=== PATIENT | female | born 1965 | race Caucasian/White ===

== ENCOUNTER 2018-06-07 06:09 | Day surgery (SDC) | payer BC, SELFPAY ==
[2018-06-07 06:29] VITALS: BP 99/67; PULSE 74; RESP 18; TEMP 35.9; O2SAT 100
[2018-06-07] MEDS: Lactated Ringers 1,000 ML 80 ML IV (07:14)
[2018-06-07] MEDS: Lidocaine 1% Pres-Free 5 ML VIAL (07:34)
[2018-06-07] MEDS: Bupivacaine 0.5% Pres-Free 30 ML VIAL ×2 (07:34→08:40)
[2018-06-07] MEDS: Lidocaine 2% Jelly 5 ML TUBE 2 ML TP (07:45)
[2018-06-07] MEDS: Dexamethasone 4 MG/ML VIAL (08:39)
--- NOTE | 2018-06-07 08:56 | W.PM.DSUDISC ---
Discharge Plan Discharge Details Attending Provider: Eliecer Davis Primary Care Provider: Baljeet Martinez Home Meds and New Rx's Prescriptions: No Action levothyroxine 125 mcg Capsule 125 mcg PO DAILY RF: 0 DS: Diagnosis Discharge Diagnosis (1) Hallux valgus (acquired), left foot: Start date: 06/07/18 Start time: 09:00 Status: Acute Asessment and Plan: HAV LEFT FOOT Edy type bunionectomy with fibular sesamoidectomy and internal fixation with 2.7 synthes screws x 2.
[2018-06-07 09:20] VITALS: BP 111/76; PULSE 58; RESP 16; TEMP 36; O2SAT 100
--- NOTE | 2018-06-07 10:09 | ROE_ITS ---
REPORT OF OPERATIVE PROCEDURE DATE OF PROCEDURE June 07, 2018 PREOPERATIVE DIAGNOSIS Symptomatic left HAV deformity. POSTOPERATIVE DIAGNOSIS Symptomatic left HAV deformity. PROCEDURE Edy-type bunionectomy with fibular sesamoidectomy, internal refixation, Synthes 2.7 cortical screw s 15 mm x2. SURGEON Eliecer Davis D.P.M. ANESTHESIA General anesthesia. ANESTHESIA PROVIDER Jaguar Contreras C.R.N.A. OPERATIVE INDICATIONS A 53-year-old female with chronic left foot pain centered around her left bunion deformity, pain sub second metatarsal. Weight bearing, shoe gear utilization, daily activities have all been negatively a ffected by the deformity. Conservative treatment has failed to provide significant relief of symptoms . She is opting for surgical intervention. She understands the potential risks and complications of the surgery pertaining to pain, scarring, in fection, and wound dehiscence, malunion, nonunion, delayed union of the osteotomy, over correction, u nder correction of the deformity, dorsal floating of the great toe, shortening of the great toe, fail ure of the great toe to purchase the ground, symptomatic hardware potentially requiring reversional p rocedure. Informed consent has been obtained. No promises made final outcome of surgery. REPORT OF OPERATION Gabriela was brought to the Operative Suite, placed in the supine position where the left foot was preppe d and draped in the usual sterile podiatric fashion. Anesthesia being obtained via 10 cc of 50:50 mi xture of 1% lidocaine plain, 0.5% Marcaine plain. A well-padded ankle tourniquet inflated, once the f oot was exsanguinated 250 mmHg. Attention was directed to the dorsal aspect of first MPJ were a 5-cm incision was made medial to the EHL tendon. The incision was deepened in controlled depth fashion. Hemostasis acquired with electrocautery as needed. Dissection was carried down to the joint capsule . Significant constriction of the lateral portion of the joint capsule was appreciated. As such, a la teral capsulotomy was performed. The fibular sesamoid was noted to be sitting on the lateral side of the first metatarsal head, so we proceeded with a fibular sesamoidectomy. Once this was accomplished, nice relaxation of the great toe joint was appreciated. Attention was now directed medially, where a n inverted L-capsulotomy was performed. The capsule was reflected. The first metatarsal head was deli giana into the wound. Extensive hypertrophy was appreciated over the dorsal and medial aspect of the first metatarsal head. With power instrumentation, the hyperostosis was all resected. The articular c artilage appeared viable. There was some denuding dorsal medially over the joint line, but overall, t he joint did appear viable. An office V-osteotomy was then performed through the first metatarsal hea d so as to translocate the capital fragment laterally. This was accomplished successfully. The head was impacted and fixated with two Synthes 2.7 cortical screws. Good correction of deformity was appre ciated at this time. The medial shelf was resected. Please note the bone was moderately soft overall and will be brought up to the patient postoperatively. Nevertheless, the screws purchased well. Once again, irrigation was performed. All roughened bony edges were smoothed. The joint capsule was repai red performing a medial capsulorraphy, closing the capsule with simple interrupted suture #3-0 Vicryl . The subcutaneous layer was repaired with #3-0 Vicryl. The subcuticular layer was brought together with #4-0 Vicryl and a running Monocryl #4.0 suture was used to coapt the skin, 1/2-inch Steri-Strips were then applied, followed by Xeroform, gauze fluff compression dressings. The Tourniquet was rele ased at approximately 58 minutes with vascularity returning immediately to all toes. Gabriela left the OR with vital signs stable, vascular status intact. She will be followed by myself in the office next week. Sponge and sharp counts were correct. CC: Raj Rehman.
== END 2018-06-07 09:38 | disposition home or self-care (01) ==
PROVIDERS: PCP Specialist/Technologist Athletic Trainer; Visit Provider Podiatrist
PROC: (CPT 28292; principal; 2018-06-07 07:30)
DX: M20.12 Hallux valgus (acquired), left foot (principal); M21.612 Bunion of left foot; M79.675 Pain in left toe(s)
CPT/HCPCS: 28296; J0690; J1100

== ENCOUNTER 2020-07-02 15:12 | Outpatient (REF) | payer BC, SELFPAY ==
[2020-07-02 16:26] LABS: HCT 41.7 % (36.0-46.0); HGB 14.2 g/dL (11.2-15.7); MCH 30.3 pg (27.0-33.0); MCHC 34.1 % (32.0-36.0); MCV 88.9 fL (80-95); MPV 10.3 fL (8.0-11.0); Platelet Count 192 10^3/uL (130-400); RBC 4.69 10^6/uL (3.93-5.22); RDW 12.4 % (11.7-14.6); RDW-SD 40.2 fL; WBC 4.41 10^3/uL (4.4-10.8)
[2020-07-02 16:37] LABS: Anion Gap 5.4 mmol/L (3-11); BUN 20 mg/dL (7-18); CO2 30.6 mmol/L (21.0-32.0); CREATININE 0.8 mg/dL (0.55-1.02); Calcium 8.8 mg/dL (8.5-10.1); Calculated LDL 130 mg/dL (<100); Chloride 107 mmol/L (98-107); Cholesterol 195 mg/dL (<200); Glucose 87 mg/dL (74-106); HDL Cholesterol 57 mg/dL (40-60); Magnesium 2.1 mg/dL (1.8-2.4); Potassium 4.2 mmol/L (3.5-5.1); Sodium 143 mmol/L (136-145); Triglyceride 42 mg/dL (<150)
[2020-07-05 11:23] LABS: Hepatitis C Ab w Rflx HCV PCR Negative (Negative)
== END 2020-07-02 15:13 | disposition home or self-care (01) ==
LOC: NCHCN 15:12
PROVIDERS: PCP Nurse Practitioner Family; Visit Provider Nurse Practitioner Family
DX: Z00.00 Encounter for general adult medical examination without abnormal findings (principal); Z13.220 Encounter for screening for lipoid disorders; Z11.59 Encounter for screening for other viral diseases; Z13.228 Encounter for screening for other metabolic disorders
CPT/HCPCS: 80048; 80061; 85027; 86803; 83735

== ENCOUNTER 2021-09-29 17:16 | Outpatient (REF) | payer BC, SELFPAY ==
[2021-09-29 19:25] LABS: TSH (W/Ref FT4) 0.07 uIU/mL (0.36-3.74)
[2021-09-29 20:01] LABS: FREE T4 1.39 ng/dL (0.76-1.46)
== END 2021-09-29 17:17 | disposition home or self-care (01) ==
LOC: NCHCN 17:16
PROVIDERS: PCP Nurse Practitioner Family; Visit Provider Nurse Practitioner Family
DX: E03.9 Hypothyroidism, unspecified (principal)
CPT/HCPCS: 84439; 84443

== ENCOUNTER 2022-07-06 14:00 | Outpatient (REF) | payer BC, SELFPAY ==
[2022-07-06 17:21] LABS: Hemoglobin A1C 5.4 % (<5.7)
[2022-07-06 17:36] LABS: ALT 27 U/L (14-59); AST 13 U/L (15-37); Albumin 3.9 g/dL (3.4-5.0); Alkaline Phosphatase 101 U/L (46-116); Anion Gap 5.1 mmol/L (3-11); BUN 14 mg/dL (7-18); CO2 30.9 mmol/L (21.0-32.0); CREATININE 0.9 mg/dL (0.55-1.02); Calcium 9.2 mg/dL (8.5-10.1); Calculated LDL 102 mg/dL (<100); Chloride 106 mmol/L (98-107); Cholesterol 176 mg/dL (<200); Estimated GFR 73.64 (mL/min/1.73m2); Glucose 95 mg/dL (74-106); HDL Cholesterol 52 mg/dL (40-60); Potassium 4.4 mmol/L (3.5-5.1); Sodium 142 mmol/L (136-145); TSH 0.72 uIU/mL (0.36-3.74); Total Protein 7.4 g/dL (6.4-8.2); Triglyceride 110 mg/dL (<150)
[2022-07-06 17:50] LABS: Vitamin D 25 Total 23.6 ng/mL (30-100)
== END 2022-07-06 14:01 | disposition home or self-care (01) ==
LOC: NCHCN 14:00
PROVIDERS: PCP Nurse Practitioner Family; Visit Provider Nurse Practitioner Family
DX: Z00.00 Encounter for general adult medical examination without abnormal findings (principal); E03.9 Hypothyroidism, unspecified; Z13.1 Encounter for screening for diabetes mellitus; Z13.220 Encounter for screening for lipoid disorders; E55.9 Vitamin D deficiency, unspecified
CPT/HCPCS: 80053; 80061; 82306; 83036; 84443

== ENCOUNTER 2023-06-22 12:31 | Observation (INO) | payer BC, SELFPAY ==
[2023-06-22] VITALS (49 sets, daily range): BP systolic 118–181; BP diastolic 76–99; PULSE 56–95; RESP 9–20; TEMP 36–36.6; O2SAT 96–100
--- NOTE | 2023-06-22 12:33 | RT.EKG_ITS ---
APPROVED REPORT Exam: Resting ECG Reason for Exam: Palpatations Patient Location: E HR:93 bpm ECG Measurements Heart Rate 93 AXIS MN 136 P 72 QRSd 79 QRS 53 QT 352 T 58 QTc 437 Conclusion Sinus rhythm...normal P axis, V-rate 60- [address] dep laterally v3-5
[2023-06-22 13:01] LABS: Abs Immature Grans 0.01 10^3/uL (0.0-0.06); Absolute Basophil Count 0.02 10^3/uL (0.0-0.2); Absolute Eosinophil Count 0.05 10^3/uL (0.0-0.7); Absolute Monocyte Count 0.61 10^3/uL (0.1-0.8); Absolute Neutrophil Count 2.15 10^3/uL (1.2-6.7); Basophils % 0.5; Eosinophils % 1.2; HCT 43.4 % (36.0-46.0); HGB 14.7 g/dL (11.2-15.7); Immature Grans % 0.2; Lymphocytes % 31.4; MCH 30.4 pg (27.0-33.0); MCHC 33.9 % (32.0-36.0); MCV 90 fL (80-95); MPV 9.7 fL (8.0-11.0); Monocytes % 14.7; Platelet Count 166 10^3/uL (130-400); RBC 4.83 10^6/uL (3.93-5.22); RDW 12.1 % (11.7-14.6); RDW-SD 39.8 fL; WBC 4.14 10^3/uL (4.4-10.8)
[2023-06-22 13:25] LABS: Albumin 4.1 g/dL (3.4-5.0); Alkaline Phosphatase 81 U/L (46-116); BUN 20 mg/dL (7-18); Bilirubin, Total 1.1 mg/dL (0.2-1.0); Chloride 106 mmol/L (98-107); Estimated GFR 64.49 (mL/min/1.73m2); Glucose 97 mg/dL (74-106); Potassium 3.7 mmol/L (3.5-5.1); Sodium 142 mmol/L (136-145); Total Protein 7.3 g/dL (6.4-8.2)
[2023-06-22 13:26] LABS: ALT 26 U/L (14-59); AST 8 U/L (15-37); Anion Gap 11.7 mmol/L (3-11); CO2 24.3 mmol/L (21.0-32.0); TSH (W/Ref FT4) 0.06 uIU/mL (0.36-3.74); Troponin I < 50 ng/L (< or =60)
[2023-06-22] MEDS: Aspirin 325 MG TAB PO (13:26)
[2023-06-22 13:41] LABS: FREE T4 1.74 ng/dL (0.76-1.46)
--- NOTE | 2023-06-22 13:58 | DI.RAD_ITS ---
Exam(s) XR PORTABLE CHEST AP EXAM: XR PORTABLE CHEST AP CLINICAL HISTORY: chest pain TECHNIQUE: 2D digital imaging was performed. COMPARISON: No exams were available for comparison FINDINGS: LUNGS: Clear. No pleural abnormality seen. HEART: Normal size. AORTA: Normal diameter. BONES: Unremarkable for age. Soft tissues: Unremarkable. IMPRESSION: No acute findings. DATA REPOSITORY: RADIATION DOSE DELIVERED:
--- NOTE | 2023-06-22 14:24 | ED.GENADUL_ITS ---
Discharge Plan Disposition Patient Disposition: Admit to [facility] Condition: Serious Discharge Details Chief Complaint: Palpitatns Clinical Impression: Hyperthyroidism, Chest pain Primary Care Provider: Tracee Hernandez ED Provider: Donato Mandujano Home Meds and New Rx's Prescriptions: No Action cholecalciferol (vitamin D3) [Vitamin D3] 125 mcg (5,000 unit) tablet 5,000 unit PO DAILY levothyroxine 125 mcg Capsule 125 mcg PO DAILY HPI General Mode of arrival: ambulatory . Date/Time Provider Initiated Documentation: 06/22/23 12:54 . Limitations to Documentation: no limitations . Information obtained by: patient . HPI Narrative: 58-year-old female presents with chief complaint of palpitations. Patient notes she has had palpitations for the past few months. These occur intermittently. She has been having them more frequently over the past few weeks. She notes increased fatigue over the past 1 week. Yesterday she developed some left shoulder discomfort described as an ache which has since resolved. Today she had sudden onset of chest discomfort described as indigestion and heaviness in her central chest. She has not experienced this in the past. She denies calf pain or swelling. No shortness of breath. She currently continues to have chest discomfort. Related Data Home Medications Medication Instructions Recorded Confirmed levothyroxine 125 mcg capsule 125 mcg PO DAILY 06/03/18 06/22/23 cholecalciferol (vitamin D3) 125 5,000 unit PO DAILY 06/22/23 06/22/23 mcg (5,000 unit) tablet (Vitamin D3) Allergies Allergy/AdvReac Type Severity Reaction Status Date / Time No Known Allergies Allergy Unverified 06/22/23 12:53 General Stated Complaint: Palpitatns JOSE M: 3 Exam Const General: cooperative and no acute distress [facility] Mouth: moist mucous membranes Eyes Conjunctivae: normal conjunctivae Sclera: normal sclerae Neck Neck: trachea midline and supple Resp Auscultation: clear to auscultation bilaterally, no rales, no rhonchi and no wheezes Cardio Rate: regular rate and not tachycardic Rhythm: regular rhythm GI Palpation: soft, not firm, no guarding, no masses, not rigid and nontender Skin General skin exam: no rashes or lesions noted Neuro General: patient alert, patient awake, patient oriented x3 and tone normal Extrem General: no calf tenderness and no edema Psych Appearance: grossly normal Mental Status: mental status grossly normal Speech and Movement: speech and movement normal Course Vital Signs Vital signs: Vital Signs Temperature 36.6 C 06/22/23 12:39 Pulse 95 H 06/22/23 12:39 Respiratory Rate 12 06/22/23 12:39 Blood Pressure 177/84 H 06/22/23 12:39 Pulse Oximetry 100 06/22/23 12:39 Temperature 36.6 C 06/22/23 12:39 Temperature Source Oral 06/22/23 12:39 Pulse 68 06/22/23 14:00 Pulse 70 06/22/23 14:10 Respiratory Rate 16 06/22/23 14:10 Respiratory Effort Normal 06/22/23 12:45 Blood Pressure 140/93 H 06/22/23 14:00 Blood Pressure Mean 109 06/22/23 14:00 Blood Pressure Position Sitting 06/22/23 12:39 Pulse Oximetry 96 06/22/23 14:10 Oxygen Delivery Method Room Air 06/22/23 12:39 Oxygen Flow Rate 0 06/22/23 12:39 Pain Level 0 06/22/23 12:39 Lab/Test Results Lab/Test Results: Laboratory Tests Range/Units 06/22/23 12:52 WBC (4.4-10.8) 10^3/uL 4.14 L RBC (3.93-5.22) 10^6/uL 4.83 Hgb (11.2-15.7) g/dL 14.7 Hct (36.0-46.0) % 43.4 MCV (80-95) fL 90 MCH (27.0-33.0) pg 30.4 MCHC (32.0-36.0) % 33.9 RDW (11.7-14.6) % 12.1 Plt Count (130-400) 10^3/uL 166 MPV (8.0-11.0) fL 9.7 Immature Gran % 0.2 Neutrophils % 52.0 Lymphocytes % 31.4 Monocytes % 14.7 Eosinophils % 1.2 Basophils % 0.5 Nucleated RBC % (0.0-0.3) % 0.0 Absolute Neutrophils (1.2-6.7) 10^3/uL 2.15 Absolute Lymphocytes (1.2-3.4) 10^3/uL 1.30 Absolute Monocytes (0.1-0.8) 10^3/uL 0.61 Absolute Eosinophils (0.0-0.7) 10^3/uL 0.05 Absolute Basophils (0.0-0.2) 10^3/uL 0.02 Sodium (136-145) mmol/L 142 Potassium (3.5-5.1) mmol/L 3.7 Chloride (98-107) mmol/L 106 Carbon Dioxide (21.0-32.0) mmol/L 24.3 Anion Gap (3-11) mmol/L 11.7 H BUN (7-18) mg/dL 20 H Creatinine (0.55-1.02) mg/dL 1.0 Est GFR (CKD-EPI 2020) (mL/min/1.73m2) 64.49 Glucose (74-106) mg/dL 97 Calcium (8.5-10.1) mg/dL 9.0 Magnesium (1.8-2.4) mg/dL 2.0 Total Bilirubin (0.2-1.0) mg/dL 1.1 H AST (15-37) U/L 8 L ALT (14-59) U/L 26 Alkaline Phosphatase (46-116) U/L 81 Troponin I (< or =60) ng/L < 50 Total Protein (6.4-8.2) g/dL 7.3 Albumin (3.4-5.0) g/dL 4.1 TSH (0.36-3.74) uIU/mL 0.06 L Free T4 (0.76-1.46) ng/dL 1.74 H Medical Decision Making 1435 -- 58-year-old female with history of hypothyroidism, here with chest discomfort described as indigestion that started today, associated with left shoulder ache that she experienced yesterday, increased palpitations over the past few weeks and fatigue over the past 1 week. Patient is hypertensive. Concern for ACS. EKG was reviewed and interpreted by me: Sinus rhythm 93 bpm, normal axis, no STEMI, subtle ST depressions noted laterally V3 to V5. No old for comparison. Plan to initiate treatment with aspirin and nitroglycerin. When nurse went to administer nitroglycerin, patient noted chest discomfort had resolved. Nitroglycerin was held. Initial troponin reviewed and negative. Chest x-ray reviewed and interpreted by radiology: No acute findings. 1535 --Labs reviewed. Delta troponin negative. Patient does have elevated free T4 and depressed TSH. She has been taking her Synthroid as prescribed. I am concerned about hyperthyroidism which may be contributing to her symptoms. I will initiate treatment with atenolol 25 mg. Patient does have elevated heart score. Plan to hospitalize for cardiac monitoring and further treatment. 513--I spoke with Dr. Frederick, discussed ED presentation and course, he will admit the patient as observation on cardiac monitoring. Lab Data Lab results reviewed: Yes I reviewed the patient's lab results. Labs: Laboratory Tests Range/Units 06/22/23 06/22/23 12:52 14:22 WBC (4.4-10.8) 10^3/uL 4.14 L RBC (3.93-5.22) 10^6/uL 4.83 Hgb (11.2-15.7) g/dL 14.7 Hct (36.0-46.0) % 43.4 MCV (80-95) fL 90 MCH (27.0-33.0) pg 30.4 MCHC (32.0-36.0) % 33.9 RDW (11.7-14.6) % 12.1 Plt Count (130-400) 10^3/uL 166 MPV (8.0-11.0) fL 9.7 Immature Gran % 0.2 Neutrophils % 52.0 Lymphocytes % 31.4 Monocytes % 14.7 Eosinophils % 1.2 Basophils % 0.5 Nucleated RBC % (0.0-0.3) % 0.0 Absolute Neutrophils (1.2-6.7) 10^3/uL 2.15 Absolute Lymphocytes (1.2-3.4) 10^3/uL 1.30 Absolute Monocytes (0.1-0.8) 10^3/uL 0.61 Absolute Eosinophils (0.0-0.7) 10^3/uL 0.05 Absolute Basophils (0.0-0.2) 10^3/uL 0.02 Sodium (136-145) mmol/L 142 Potassium (3.5-5.1) mmol/L 3.7 Chloride (98-107) mmol/L 106 Carbon Dioxide (21.0-32.0) mmol/L 24.3 Anion Gap (3-11) mmol/L 11.7 H BUN (7-18) mg/dL 20 H Creatinine (0.55-1.02) mg/dL 1.0 Est GFR (CKD-EPI 2020) (mL/min/1.73m2) 64.49 Glucose (74-106) mg/dL 97 Calcium (8.5-10.1) mg/dL 9.0 Magnesium (1.8-2.4) mg/dL 2.0 Total Bilirubin (0.2-1.0) mg/dL 1.1 H AST (15-37) U/L 8 L ALT (14-59) U/L 26 Alkaline Phosphatase (46-116) U/L 81 Troponin I (< or =60) ng/L < 50 < 50 Total Protein (6.4-8.2) g/dL 7.3 Albumin (3.4-5.0) g/dL 4.1 TSH (0.36-3.74) uIU/mL 0.06 L Free T4 (0.76-1.46) ng/dL 1.74 H Quality:SDOH Health Related Social Needs: No Data to Display PFSH All Active Problems (Updated 06/22/23 @ 16:00 by Donato Mandujano MD) Chest pain (Acute) Hyperthyroidism (Chronic) Hallux valgus (acquired), left foot (Acute) Social History Smoking/Tobacco Use Status: Never Smoking risk assessment performed?: Yes Alcohol Intake: never Drug use: Never Substance use type: does not use Do you feel safe at home: Yes Do you feel safe in your relationship?: Yes
[2023-06-22 15:05] LABS: Troponin I < 50 ng/L (< or =60)
[2023-06-22] MEDS: Atenolol 25 MG TAB PO (15:45)
--- NOTE | 2023-06-22 16:42 | HPE_ITS ---
Date of service: 06/22/23 Time of Service: 16:42 Assessment and Plan Assessment and plan (1) Chest pain: Status: Acute Assessment and plan: Serial troponins have remained negative. EKG nonischemic. Will defer further cardiac evaluation to outpatient team. Is being observed on telemetry secondary to her palpitations. Will continue to monitor (2) Hypothyroidism: Status: Chronic Assessment and plan: Overtreated. TSH 0.06 will hold levothyroxine and will order recheck outpatient with further dosing recommendation to outpatient team (3) Palpitation: Status: Acute Assessment and plan: Observed on telemetry will discharge home on cardiac event recorder if she remains with no dysrhythmias overnight. discussed with DR Frederick History of Present Illness History of Present Illness Chief Complaint: palpitations Narrative: This is a 58-year-old female patient past medical history significant for hypothyroidism treated with levo thyroxine who reports several months of intermittent palpitations. She denies any aggravating or alleviating factors associated with these palpitations. They typically are not associated with any shortness of breath nausea vomiting or chest pain. They are self-limiting and resolve spontaneously. She has not discussed them with any previous providers. She presented to the emergency department today as she did discuss some discomfort in her chest associated with the palpitations which she states was new. She denied any diaphoresis nausea radiation vomiting or shortness of breath. She decided to present to the emergency department for evaluation her workup in the emergency department was unremarkable her EKG was nonischemic her troponins x 2 were negative chest x-ray unremarkable she was found to have a TSH of 0.06. She was reporting palpitations but no dysrhythmias or ectopy on telemetry. She was given atenolol for her symptoms which was not helpful as she continued to experience her palpitations. Again there was no ectopy or dysrhythmia on telemetry. She was asked to be admitted to the hospitalist services for further monitoring. Review of Systems All systems reviewed & are unremarkable except as noted in HPI and below PFSH All Active Problems (Updated 06/22/23 @ 17:36 by MAYDA OBRIEN) Palpitation (Acute) Hypothyroidism (Chronic) Chest pain (Acute) Hyperthyroidism (Chronic) Hallux valgus (acquired), left foot (Acute) Social History Smoking/Tobacco Use Status: Never Smoking risk assessment performed?: Yes Alcohol Intake: never Drug use: Never Substance use type: does not use Housing: house Do you feel safe at home: Yes Do you feel safe in your relationship?: Yes Meds Allergies and Home Medications Allergies Allergy/AdvReac Type Severity Reaction Status Date / Time No Known Allergies Allergy Unverified 06/22/23 12:53 Home Medications Medication Instructions Recorded Confirmed Type cholecalciferol (vitamin D3) 125 5,000 unit PO DAILY 06/22/23 06/22/23 History mcg (5,000 unit) tablet (Vitamin D3) levothyroxine 100 mcg tablet 100 mcg PO DAILY 06/23/23 06/23/23 History Exam Narrative Exam Narrative: Well-appearing female of stated age in no acute distress head is atraumatic appearance of eyes normal nonicteric noninjected with EOMs intact. Neurologic she is awake alert oriented no focal deficits her neck is supple with no JVD no carotid bruits appreciated Cardiovascular regular rate and rhythm no murmurs she is pink warm dry well- perfused. Good peripheral pulses Respirations are even and unlabored, breath sounds are clear bilaterally no wheezing or rhonchi her abdomen is soft nontender She moves all extremities equally no peripheral edema good pulses Skin with no rashes or lesions Psychiatric normal mood and affect Results Labs 06/22/23 12:52 06/22/23 12:52 Labs: Laboratory Results - last 24 hr 06/22/23 06/22/23 12:52 14:22 WBC 4.14 L RBC 4.83 Hgb 14.7 Hct 43.4 MCV 90 MCH 30.4 MCHC 33.9 RDW 12.1 Plt Count 166 MPV 9.7 Immature Gran % 0.2 Neutrophils % 52.0 Lymphocytes % 31.4 Monocytes % 14.7 Eosinophils % 1.2 Basophils % 0.5 Nucleated RBC % 0.0 Absolute Neutrophils 2.15 Absolute Lymphocytes 1.30 Absolute Monocytes 0.61 Absolute Eosinophils 0.05 Absolute Basophils 0.02 Sodium 142 Potassium 3.7 Chloride 106 Carbon Dioxide 24.3 Anion Gap 11.7 H BUN 20 H Creatinine 1.0 Est GFR (CKD-EPI 2020) 64.49 Glucose 97 Calcium 9.0 Magnesium 2.0 Total Bilirubin 1.1 H AST 8 L ALT 26 Alkaline Phosphatase 81 Troponin I < 50 < 50 Total Protein 7.3 Albumin 4.1 TSH 0.06 L Free T4 1.74 H Last Vital Signs Temp 36.6 C 06/22/23 12:39 Pulse 61 06/22/23 16:16 Resp 15 06/22/23 16:30 BP 149/93 H 06/22/23 16:16 Pulse Ox 99 06/22/23 16:30 Time Spent Time spent with Patient: 40-54 minutes Time was spent: preparing to see the patient(eg.review tests), obtaining and/or reviewing separately otained hiistory, indepentently interpreting results and counseling the patient
[2023-06-22 18:21] LABS: Troponin I < 50 ng/L (< or =60)
[2023-06-22] MEDS: Enoxaparin 40 MG/0.4 ML SYR SC (18:37)
[2023-06-22] MEDS: Normal Saline Flush 10 ML SYR IVP (19:31)
[2023-06-23 04:50] VITALS: BP 109/72; PULSE 55; RESP 14; TEMP 36.2; O2SAT 100
[2023-06-23] MEDS: Mylanta Suspension 30 ML CUP PO (08:43)
[2023-06-23] MEDS: Normal Saline Flush 10 ML SYR IVP (08:43)
[2023-06-23 09:03] VITALS: BP 121/86; PULSE 65; RESP 18; TEMP 36.1; O2SAT 100
[2023-06-23 11:08] VITALS: BP 115/77; PULSE 56; RESP 18; TEMP 36.4; O2SAT 98
--- NOTE | 2023-06-23 11:51 | DSE_ITS ---
Date of service: 06/23/23 Time of Service: 11:51 DS: Diagnosis Discharge Diagnosis (1) Chest pain: Status: Acute (2) Hypothyroidism: Status: Chronic (3) Palpitation: Status: Acute Discharge Plan Disposition Patient Disposition: Home Condition: Stable Discharge Details Reason For Visit: Palpatations, chest pain Admit Date/Time: 06/22/23 16:15 Admit Provider: Herson Frederick Attending Provider: Herson Frederick Primary Care Provider: Tracee Hernandez Hospital Course Hospital Course: This is a 58-year-old female patient past medical history significant for hypothyroidism presented to the emergency department with palpitations and chest pressure. Her serial troponins remain negative EKG was nonischemic. Overnight she remained in sinus rhythm with no dysrhythmia or ectopy. She is being discharged to home with her levothyroxine on hold as her TSH is 0.06. She should follow-up with her outpatient team for further cardiac evaluation is recommended. No echo or stress testing was available on her hospitalization so will defer to outpatient team if they feel appropriate to pursue. She was advised to return sooner for new or worsening symptoms discharge to home with traffic monitor specialist and close outpatient follow-up with primary care provider Discharge discussed with Dr. Frederick. Home Meds and New Rx's Prescriptions: Continued cholecalciferol (vitamin D3) [Vitamin D3] 125 mcg (5,000 unit) tablet 5,000 unit PO DAILY Held levothyroxine 100 mcg tablet 100 mcg PO DAILY Hold Instructions: till discussed with outpatient team Discharge Instructions Instructions: Heart Palpitations (DC), Hypothyroidism (DC) Additional Instructions: Hold your levothyroxine until discussed with your outpatient team Wear traffic monitor specialist as directed Stand Alone Forms: Nursing Discharge Form Referrals: Tracee Hernandez [Primary Care Provider] - (Message left with office to call you Sunday to make a follow up appointment for 1-2 weeks. If you do not hear from the office on Sunday please reach out to them to make a follow up. ) Activity:: Activity as Tolerated Equipment/Supplies:: No Equipment Needed Diet:: As Tolerated Discharge Orders Discharge Orders: Discharge Order (Routine); Ordered 06/23/23 Ordered By: Kendy De La Torre Other Ambulatory Orders: Cardiac Event Recorder (Routine) Timeframe: [id number] Facility: [facility] - Location: Respiratory Therapy Ordered By: Kendy De La Torre DS: Summary Time Spent with Patient providing and/or coordinating discharge services: Less than 30 minutes Status at Discharge Functional status at discharge: independent ambulation Overall status at discharge: patient is back to baseline Mental Status: mental status grossly normal Speech and Movement: speech and movement normal Mood: congruent mood Affect: normal affect Quality:SDOH Health Related Social Needs: Health related social needs details no problems report ed in this area Health related social needs details: no problems reported in this area Exam Narrative Exam Narrative: Well-appearing female of stated age in no acute distress head is atraumatic appearance of eyes normal nonicteric noninjected with EOMs intact. Neurologic she is awake alert oriented no focal deficits her neck is supple with no JVD no carotid bruits appreciated Cardiovascular regular rate and rhythm no murmurs she is pink warm dry well- perfused. Good peripheral pulses Respirations are even and unlabored, breath sounds are clear bilaterally no wheezing or rhonchi her abdomen is soft nontender She moves all extremities equally no peripheral edema good pulses Skin with no rashes or lesions Psychiatric normal mood and affect Psych Mental Status: mental status grossly normal Speech and Movement: speech and movement normal Mood: congruent mood Affect: normal affect DS: Data Vitals/I&O Vitals and I&O: Vital Signs Temperature 36.4 C L 06/23/23 11:08 Temperature Source Tympanic 06/23/23 11:08 Pulse 56 L 06/23/23 11:08 Pulse Rhythm Regular 06/23/23 08:35 Pulse 64 06/22/23 17:16 Respiratory Rate 18 06/23/23 11:08 Respiratory Effort Normal, Non-Labored 06/23/23 08:35 Respiratory Depth Normal 06/23/23 08:35 Respiratory Pattern Normal 06/23/23 08:35 Blood Pressure 115/77 06/23/23 11:08 Blood Pressure Mean 100 06/22/23 17:16 Blood Pressure Position Sitting 06/22/23 12:39 Pulse Oximetry 98 06/23/23 11:08 Oxygen Delivery Method Room Air 06/23/23 11:08 Oxygen Flow Rate 0 06/23/23 11:08 Pain Level 0 06/23/23 11:08 Comment patient breathing freely on room air, in nil respiratory or painful distress 06/22/23 17:39 Intake & Output 06/22/23 06/22/23 06/23/23 11:59 23:59 11:59 Weight 84.368 kg Other: Urine Color Yellow Urine Appearance Clear Clear Stool Size Moderate Stool Characteristics Formed Voiding Methods Toilet Data Completed and Pending Labs on day of discharge: Labs from last 24 hours 06/22/23 06/22/23 06/22/23 17:52 14:22 12:52 WBC 4.14 L RBC 4.83 Hgb 14.7 Hct 43.4 MCV 90 MCH 30.4 MCHC 33.9 RDW 12.1 Plt Count 166 MPV 9.7 Immature Gran % 0.2 Neutrophils % 52.0 Lymphocytes % 31.4 Monocytes % 14.7 Eosinophils % 1.2 Basophils % 0.5 Nucleated RBC % 0.0 Absolute Neutrophils 2.15 Absolute Lymphocytes 1.30 Absolute Monocytes 0.61 Absolute Eosinophils 0.05 Absolute Basophils 0.02 Sodium 142 Potassium 3.7 Chloride 106 Carbon Dioxide 24.3 Anion Gap 11.7 H BUN 20 H Creatinine 1.0 Est GFR (CKD-EPI 2020) 64.49 Glucose 97 Calcium 9.0 Magnesium 2.0 Total Bilirubin 1.1 H AST 8 L ALT 26 Alkaline Phosphatase 81 Troponin I < 50 < 50 < 50 Total Protein 7.3 Albumin 4.1 TSH 0.06 L Free T4 1.74 H PFSH All Active Problems (Updated 06/22/23 @ 17:36 by MAYDA OBRIEN) Palpitation (Acute) Hypothyroidism (Chronic) Chest pain (Acute) Hyperthyroidism (Chronic) Hallux valgus (acquired), left foot (Acute) Social History Smoking/Tobacco Use Status: Never Smoking risk assessment performed?: Yes Alcohol Intake: never Drug use: Never Substance use type: does not use Housing: house Do you feel safe at home: Yes Do you feel safe in your relationship?: Yes Time Spent with Patient Time Spent with Patient: <45 minutes Time was spent: preparing to see the patient(eg.review tests), ordering medications,tests, procedures, indepentently interpreting results and counseling the patient
--- NOTE | 2023-06-24 08:33 | NUR.NOTE ---
Accessed chart to determine EKG orders to reconcile with [employer]. Nursing Note:
--- NOTE | 2023-06-28 07:13 | NUR.NOTE ---
Accessed pt chart to reconcile EKG orders to EKG's in [employer]. Nursing Note:
== END 2023-06-23 13:22 | disposition home or self-care (01) ==
LOC: ER 16:00 → MS 17:36
PROVIDERS: Admitting Provider Internal Medicine; Emergency Provider Student in an Organized Health Care Education/Training Program; PCP Nurse Practitioner Family; Visit Provider Internal Medicine
DX: R00.2 Palpitations (principal); R07.89 Other chest pain; E03.9 Hypothyroidism, unspecified; Z79.899 Other long term (current) drug therapy
CPT/HCPCS: 00123; 36415; 80053; 93005; 96372; 99285; J1650; 71045; 83735; 84439; 84443; 84484; 85025; 93010; 99223; 99238; G0378

== ENCOUNTER 2023-07-09 14:14 | Outpatient (REF) | payer BC, SELFPAY ==
[2023-07-09 15:46] LABS: ALT 33 U/L (14-59); AST 12 U/L (15-37); Albumin 4.1 g/dL (3.4-5.0); Alkaline Phosphatase 79 U/L (46-116); Anion Gap 7.9 mmol/L (3-11); BUN 16 mg/dL (7-18); CO2 27.1 mmol/L (21.0-32.0); CREATININE 0.9 mg/dL (0.55-1.02); Calcium 8.9 mg/dL (8.5-10.1); Chloride 107 mmol/L (98-107); Estimated GFR 73.19 (mL/min/1.73m2); Glucose 85 mg/dL (74-106); Potassium 3.7 mmol/L (3.5-5.1); Sodium 142 mmol/L (136-145)
== END 2023-07-09 14:15 | disposition home or self-care (01) ==
LOC: NCHCN 14:14
PROVIDERS: PCP Nurse Practitioner Family; Visit Provider Nurse Practitioner Family
DX: R79.89 Other specified abnormal findings of blood chemistry (principal)
CPT/HCPCS: 80053

== ENCOUNTER 2023-07-26 13:45 | Outpatient (CLI) | payer BC, SELFPAY ==
--- NOTE | 2023-07-26 13:59 | W.CARDEVENT ---
Date of service: 07/26/23 Time of Service: 13:59 Cardiac Event Recorder Referring Provider:: Tracee Harris Indications:: Palpitations Cardiac Event Note: This is a cardiac event monitor ordered for palpitations. Patient was monitored for 29 days and 3 hours Rhythm throughout was sinus. Average heart rate was 76. Minimum was 47, maximum 159 There was no atrial fibrillation, no significant atrial or ventricular dysrhythmia, no high-grade AV block, no pauses greater than 3 seconds Symptoms reported correlated to sinus tachycardia rate 130
== END 2023-07-26 13:46 | disposition home or self-care (01) ==
LOC: CARDOPNVT 13:45
PROVIDERS: PCP Nurse Practitioner Family; Visit Provider Internal Medicine Cardiovascular Disease
DX: R00.2 Palpitations (principal)
CPT/HCPCS: 93270

== ENCOUNTER 2023-08-09 14:58 | Outpatient (REF) | payer BC, SELFPAY ==
[2023-08-09 16:41] LABS: TSH (W/Ref FT4) 64.79 uIU/mL (0.36-3.74)
[2023-08-09 17:07] LABS: FREE T4 0.21 ng/dL (0.76-1.46)
== END 2023-08-09 14:59 | disposition home or self-care (01) ==
LOC: NCHCN 14:58
PROVIDERS: PCP Nurse Practitioner Family; Visit Provider Nurse Practitioner Family
DX: E03.9 Hypothyroidism, unspecified (principal)
CPT/HCPCS: 84439; 84443

== ENCOUNTER 2023-09-20 14:27 | Outpatient (REF) | payer BC, SELFPAY ==
[2023-09-20 19:26] LABS: TSH (W/Ref FT4) 0.96 uIU/mL (0.36-3.74)
== END 2023-09-20 14:28 | disposition home or self-care (01) ==
LOC: NCHCN 14:27
PROVIDERS: PCP Nurse Practitioner Family; Visit Provider Nurse Practitioner Family
DX: E03.9 Hypothyroidism, unspecified (principal)
CPT/HCPCS: 84443

== ENCOUNTER 2024-11-07 17:04 | Outpatient (REF) | payer BC, SELFPAY ==
[2024-11-07 16:40] LABS: TSH 1.13 uIU/mL (0.36-3.74); Vitamin D 25 Total 72 ng/mL (30-100)
== END 2024-11-07 17:05 | disposition home or self-care (01) ==
LOC: NCHCN 17:04
PROVIDERS: PCP Nurse Practitioner Family; Visit Provider Nurse Practitioner Family
DX: E03.9 Hypothyroidism, unspecified (principal)
CPT/HCPCS: 82306; 84443